=== PATIENT | male | born 1970 | race Two or more races ===

== ENCOUNTER 2017-06-05 12:54 | Emergency (ER) | payer SELFPAY ==
[~2017-06-05] VITALS: Ht 167.6 cm; Wt 77.1 kg
[2017-06-05 14:09] LABS: INFLUENZA A NEG (NEG); INFLUENZA B NEG (NEG)
== END 2017-06-05 14:30 | disposition home or self-care (01) ==
LOC: SED 12:54
PROVIDERS: Nurse Practitioner
DX: B34.9 Viral infection, unspecified (principal); F17.200 Nicotine dependence, unspecified, uncomplicated
CPT/HCPCS: 87651; 87804; 99283